=== PATIENT | male | born 1995 | race Two or more races ===

== ENCOUNTER 2025-03-14 19:24 | Emergency (ER) | payer BC, SELFPAY ==
[2025-03-14 19:36] VITALS: BP 118/57; PULSE 77; RESP 20; TEMP 36.4; O2SAT 97; BMI 25.0
--- NOTE | 2025-03-14 19:45 | ED_ITS ---
HPI - General Adult General Chief complaint: General Medical Stated complaint: [facility] sent for ear infections(both) Time Seen by Provider: 03/14/25 19:45 Source: patient Mode of arrival: EMS Limitations: no limitations History of Present Illness ED Provider: HPI narrative: Patient with right ear infection for last several months taken different courses of antibiotics seen at urgent care center was sent the patient here for further treatment patient is already seen by ENT specialist have been given ear drops patient complaining of swelling of the right pinna no discharge from the Ear no fever no chills Related Data Previous Rx's ?Medication ?Instructions ?Recorded levofloxacin 500 mg tablet 500 mg PO DAILY 10 days #10 tabs 03/14/25 Allergies Allergy/AdvReac Type Severity Reaction Status Date / Time No Known Allergies Allergy Verified 03/14/25 19:40 Review of Systems 2 Review of Systems: Yes all other systems are reviewed and are negative [facility] Social History Social History Smoked in Last 30 Days: No Use of substances other than those prescribed or required for medical reasons: No Advance Directives: No Advance Directives Information Provided: No Do you have a plan to hurt others: No Plan Physical Exam ED Vital Signs: Vital Signs - 24 hr 03/14/25 19:36 03/14/25 20:24 Temperature 97.6 F 97.6 F Pulse Rate 77 77 Respiratory Rate 20 20 Blood Pressure 118/57 L 118/57 L Pulse Oximetry 97 97 Oxygen Delivery Method Room Air Room Air BMI result Body Mass Index 25.0 Appearance: Alert. Oriented X3. No acute distress. Eyes: no pallor or icterus ENT: Pharynx normal Oral Mucosa moist tympanic membrane intact no erythema small amount of wax in the right ear diffuse swelling of the right pinna no pus collection, Neck: Normal inspection. Neck supple. CVS: Normal heart rate and rhythm. Pulses normal. Respiratory: No respiratory distress. Equal air entry bilateral, no wheezing/rales/rhonchi Abd: soft, not tender Skin: Skin warm and dry. Normal skin color. Normal skin turgor. Extremities: No lower extremity edema, no calf tenderness Neuro: Oriented X 3. Medications Administered Discontinued Medications Generic Name Dose Route Start Last Admin Trade Name Freq PRN Reason Stop Dose Admin Levofloxacin 500 mg 03/14/25 19:57 03/14/25 20:02 Levofloxacin 500 Mg Tablet PO 03/14/25 19:58 500 mg ONCE ONE Administration Medical Decision Making Medical Decision Making [facility] Narrative: Patient's clinical right perichondritis no signs of infection in the EAC or tympanic membrane will prescribe Levaquin to cover Pseudomonas infection Differential Diagnosis Differential Diagnoses: The differential diagnosis associated with the presentation includes Otitis externa/perichondritis Lab Data 03/14/25 19:49 03/14/25 19:49 Labs: Lab Results 03/14/25 Range/Units 19:49 WBC 13.3 H (4.8-10.8) X10*3/uL RBC 4.79 (4.60-5.80) X10*6/uL Hgb 13.8 L (14.0-18.0) g/dl Hct 39.3 L (42.0-52.0) % MCV 82.0 (80.0-98.0) fL MCH 28.8 (27.0-33.0) pg MCHC 35.1 (31.0-36.0) g/dl RDW 13.9 (11.0-16.0) % Plt Count 312 (160-400) X10*3/uL MPV 9.0 L (9.4-12.4) fL Immature Gran % (Auto) 0.2 (0.0-0.4) % Neut % (Auto) 71.9 (45-73) % Lymph % (Auto) 19.3 L (20-40) % Garrard % (Auto) 5.4 (2-11) % Eos % (Auto) 2.8 (0-4) % Baso % (Auto) 0.4 (0-2) % Lymph # (Auto) 2.6 (1.2-4.9) X10*3/uL Garrard # (Auto) 0.7 (0.1-1.2) X10*3/uL Eos # (Auto) 0.4 (0.0-0.4) X10*3/uL Baso # (Auto) 0.1 (0.0-0.2) X10*3/uL Abs Immat Gran (auto) 0.03 (0.00-0.03) X10*3/uL Absolute Neuts (auto) 9.5 H (2.0-8.3) x10*3/uL Absolute Nucleated RBC 0.000 (0.0-0.012) X10*3/uL Nucleated RBC % (auto) 0.0 (0.0-0.2) /100WBC Sodium 141 (135-145) mmol/L Potassium 3.7 (3.3-5.1) mmol/L Chloride 102 (96-108) mmol/L Carbon Dioxide 30 H (22-29) mmol/L Anion Gap 13 (12-20) BUN 18 H (9-16) mg/dL Creatinine 1.13 (0.5-1.4) mg/dL Estim Creat Clear Calc 83.1 Estimated GFR > 60 Random Glucose 91 (60-115) mg/dL Calcium 9.7 (8.4-10.2) mg/dL Total Bilirubin 0.3 (0.0-1.0) mg/dL AST 37 (5-37) U/L ALT 29 (0-40) U/L Alkaline Phosphatase 68 (39-117) U/L Total Protein 7.5 (6.5-8.0) g/dL Albumin 4.9 (3.5-5.0) g/dL Discharge Plan Discharge Clinical Impression: Perichondritis Patient Disposition: Home, Self-Care Instructions: Ear Infection (ED) Additional Instructions: You have infection of the cartilage of the right ear Take antibiotics as prescribed Take out the piercing from the ear till heals completely Prescriptions: New levofloxacin 500 mg tablet 500 mg PO DAILY 10 Days Qty: 10 0RF Interventions: ED Discharge Assessment Last Done: 03/14/25 20:24 Discharge Date/Time: 03/14/25 20:24 Print Language: [place]
[2025-03-14 19:54] LABS: MANUAL DIFF FLAG NO
[2025-03-14 19:55] LABS: Hematocrit 39.3 % (42.0-52.0); Hemoglobin 13.8 g/dl (14.0-18.0); Imm Gran Abs Auto 0.03 X10*3/uL (0.00-0.03); Imm Gran Pct Auto 0.2 % (0.0-0.4); Lymphocytes Absolute Auto 2.6 X10*3/uL (1.2-4.9); Mean Corpuscular HGB Conc 35.1 g/dl (31.0-36.0); Mean Corpuscular Hemoglobin 28.8 pg (27.0-33.0); Mean Corpuscular Volume 82.0 fL (80.0-98.0); NRBC Abs Auto 0.000 X10*3/uL (0.0-0.012); NRBC Pct Auto 0.0 /100WBC (0.0-0.2); Platelet Count 312 X10*3/uL (160-400); Red Blood Count 4.79 X10*6/uL (4.60-5.80); White Blood Count 13.3 X10*3/uL (4.8-10.8)
[2025-03-14 20:09] LABS: Alanine Aminotransferase 29 U/L (0-40); Albumin Level 4.9 g/dL (3.5-5.0); Alkaline Phosphatase 68 U/L (39-117); Anion Gap 13 (12-20); Aspartate Amino Transferase 37 U/L (5-37); Blood Urea Nitrogen 18 mg/dL (9-16); Calcium 9.7 mg/dL (8.4-10.2); Carbon Dioxide 30 mmol/L (22-29); Chloride 102 mmol/L (96-108); Creatinine Clr Calc Pharmacy 83.1; Estimated Glomerular Filt Rate > 60; Potassium 3.7 mmol/L (3.3-5.1); Sodium 141 mmol/L (135-145); Total Protein 7.5 g/dL (6.5-8.0)
[2025-03-14 20:24] VITALS: BP 118/57; PULSE 77; RESP 20; TEMP 36.4; O2SAT 97
== END 2025-03-14 20:24 | disposition home or self-care (01) ==
PROVIDERS: Emergency Provider Internal Medicine; PCP Internal Medicine
DX: H61.001 Unspecified perichondritis of right external ear (principal); H92.01 Otalgia, right ear
CPT/HCPCS: 36415; 80053; 85025; 99283

== ENCOUNTER 2025-03-26 17:33 | Emergency (ER) | payer BC, SELFPAY ==
[2025-03-26 17:41] VITALS: BP 112/57; PULSE 79; RESP 18; TEMP 36.7; O2SAT 97; BMI 24.7
--- NOTE | 2025-03-26 17:59 | ED_ITS ---
HPI - General Adult General Chief complaint: Ear Problems Stated complaint: Ear infection, meds not working Time Seen by Provider: 03/26/25 17:58 Source: patient, RN notes reviewed and old records reviewed Mode of arrival: ambulatory Limitations: no limitations History of Present Illness ED Provider: Rio RIVAS narrative: 29-year-old male with past medical history significant for rheumatoid arthritis presents for evaluation of bilateral ear pain and swelling. He reports this has been an ongoing issue for the last 9 months or so He was on a course of prednisone in July as well as ciprofloxacin with dexamethasone and doxycycline. His symptoms improved drastically but did not completely go away. He states the over last 3-4 months he has had increasing pain and swelling, predominantly his right ear He denies any drainage from the ear or hearing loss He was seen here 12 days ago and given a 10 day course of levofloxacin 500 mg daily He states this helped minimally Denies any fevers, chills pain He does not swim frequently Denies any history of diabetes Related Data Previous Rx's ?Medication ?Instructions ?Recorded levofloxacin 500 mg tablet 500 mg PO DAILY 10 days #10 tabs 03/14/25 ciprofloxacin 0.3 %-dexamethasone 4 drp otic (ears) Q1 2H 7 days #7.5 03/26/25 0.1 % ear drops,suspension mL prednisone 10 mg tablets in a dose 10 mg PO DIRECTE D #42 ea 03/26/25 pack Allergies Allergy/AdvReac Type Severity Reaction Status Date / Time No Known Allergies Allergy Verified 03/26/25 17:43 Review of Systems Constitutional: Constitutional: Denies body ache(s), Denies chills, Denies fever(s), Denies frequent falls and Denies headache(s) ENT: Denies vertigo, Denies dizziness, Denies dry mouth, Denies ear discharge, Reports otalgia, Denies headache(s) and Denies sore throat Cardiovascular: Cardiovascular: Denies chest pain and Denies dyspnea on exertion Respiratory: Respiratory: Denies cough and Denies dyspnea on exertion Gastrointestinal: Gastrointestinal: Denies abdominal pain, Denies nausea and Denies vomiting Integumentary/Breasts: Skin/Breast: Denies rash Neurologic: Denies vertigo, Denies dizziness, Denies frequent falls and Denies headache(s) Psychiatric: Psychiatric: Denies anxiety PMFSH Social History Social History Advance Directives: No Advance Directives Information Provided: Yes Do you have a plan to hurt others: No Plan Physical Exam ED Vital Signs: Vital Signs - 24 hr 03/26/25 17:41 Temperature 98.0 F Pulse Rate 79 Respiratory Rate 18 Blood Pressure 112/57 L Pulse Oximetry 97 Oxygen Delivery Method Room Air BMI result Body Mass Index 24.7 Const General: healthy appearing, comfortable, no acute distress, alert and awake Nutritional Appearance: well nourished Orientation/consciousness: patient oriented x3 HENMT Other: The patient has bilateral perichondrial edema with tenderness with palpation of the pinna and tragus bilaterally. There is bilateral external ear canal edema with otorrhea, right greater than left. The TM is visualized, pearly white without effusion or perforation. There was no postauricular edema. Head: Yes atraumatic Eyes Eyelids: Yes eyelids normal Conjunctivae: conjunctivae normal Sclerae: sclerae normal Corneas: corneas normal Pupils: Equal, round and reactive pupils present EOM: EOMs intact bilaterally Neck Neck: Yes full ROM Resp Effort & Inspection: normal respiratory effort, able to speak in complete sentences and not labored Cardio Rate: regular rate Rhythm: regular rhythm Skin General skin exam: elasticity normal Neuro General: patient oriented x3 Cranial nerves: Yes Equal, round and reactive pupils present and Yes Bilaterally intact EOM present Cognition (Neuro): normal cognition Extrem Other: Moving all extremities well without any obvious deformities Course Course Course Narrative: Attending note, Dr. 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 He has swelling to the pinnas of both of his ears with particular swelling most at the external auditory meatus on the right side. Neither ear exhibits much in the way of erythema or warmth. In talking with the patient he ultimately revealed that he has been told that he has rheumatoid arthritis. 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 He has not seen the hazardous material specialist for awhile. Given this history I think it is probably more likely that his ear swelling is related to his arthritic problem more than an acute infection. We will place the patient on a course of prednisone. Also Ciprodex drops to the right ear. Follow up with ENT and rheumatology. Medical Decision Making Medical Decision Making MDM Narrative: 29-year-old male presents for evaluation of bilateral ear pain. This has been an ongoing issue for several months now. He has not been on any on it drops since July of last year when his symptoms did actually improve. It appears that he has an otitis externa. However given that he has been on numerous antibiotics including a fluoroquinolone recently in his possible this is not a bacterial infection. While discussing with the patient and my attending, the patient appears to have a fairly significant rheumatologic or autoimmune history. His vital signs are stable, there is no evidence of mastoiditis or malignant otitis externa. We deferred CT imaging at this time. We will give the patient a course of prednisone with ciprofloxacin/dexamethasone drops. He has both ENT and Rheumatology providers that he can follow up with it may encouraged him to call tomorrow Differential Diagnosis Differential Diagnoses: The differential diagnosis associated with the presentation includes Otitis externa Malignant otitis externa Autoimmune disorder Otitis media Mastoiditis Discharge Plan Discharge Clinical Impression: Otitis externa, Perichondritis Patient Disposition: Home, Self-Care Instructions: Swimmer's Ear (ED) Additional Instructions: Your ear pain is possibly related to an autoimmune inflammation. Take the prednisone taper as prescribed. Use dexamethasone with ciprofloxacin drops to both ears as prescribed Follow-up with ENT and your hazardous material specialist Return for new or worsening symptoms Prescriptions: New prednisone 10 mg tablets,dose pack 10 mg PO DIRECTED Qty: 42 0RF Rx Instructions: 60mg x 2 days followed by 50mg x 2 days, 40mg x 2, 30mg x 2, 20mg x 2 days and then 10mg x days. ciprofloxacin-dexamethasone 0.3-0.1 % drops,suspension 4 drp otic (ears) Q12H 7 Days Qty: 7.5 0RF No Action levofloxacin 500 mg tablet 500 mg PO DAILY 10 Days Qty: 10 0RF Print Language: [place]an
== END 2025-03-27 01:12 | disposition home or self-care (01) ==
PROVIDERS: Emergency Provider Emergency Medicine; PCP Internal Medicine
DX: H60.93 Unspecified otitis externa, bilateral (principal); H61.003 Unspecified perichondritis of external ear, bilateral; H93.8X3 Other specified disorders of ear, bilateral
CPT/HCPCS: 99281; 99283